=== PATIENT | female | born 1990 | race Caucasian/White ===

== ENCOUNTER 2025-01-14 09:47 | Emergency (ER) | payer SELFPAY ==
[~2025-01-14] VITALS: Ht 165.1 cm; Wt 72.7 kg
[2025-01-14 09:55] VITALS: BP 117/73; PULSE 80; RESP 18; TEMP 97.9; O2SAT 100
== END 2025-01-14 12:18 | disposition left against medical advice (07) ==
LOC: EMS 09:58
DX: M79.641 Pain in right hand (principal); Z53.21 Procedure and treatment not carried out due to patient leaving prior to being seen by health care provider

== ENCOUNTER 2025-03-23 13:56 | Emergency (ER) | payer OTHER, BC ==
[~2025-03-23] VITALS: Ht 167.6 cm; Wt 71.4 kg
[2025-03-23 14:00] VITALS: TEMP 98.6
[2025-03-23 14:12] LABS: COVID AG,FIA SOURCE NASAL SWAB
[2025-03-23 14:29] LABS: INFLUENZA TYPE A NEGATIVE FOR TYPE A (NEGATIVE); INFLUENZA TYPE B NEGATIVE FOR TYPE B (NEGATIVE); SARS-COV2 (COVID) ANTIGEN,FIA Negative (Negative)
[2025-03-23] MEDS: SODIUM CHLORIDE 0.9% 1,000 ML IV ONE (14:30)
[2025-03-23 14:49] LABS: BASOPHILS % (AUTO) 0.4 % (0.0-2.0); EOSINOPHILS % (AUTO) 0.4 % (1.0-6.0); HEMATOCRIT 37.6 % (36-46); HEMOGLOBIN 12.1 g/dL (12.0-16.0); LYMPHOCYTES # (AUTO) 2.2 K/uL (1.0-4.8); LYMPHOCYTES % (AUTO) 24.2 % (22.0-44.0); MEAN CORPUSCULAR HEMOGLOBIN 26.8 pg (26.0-34.0); MEAN CORPUSCULAR HGB CONC 32.1 G/dL (31.0-37.0); MEAN CORPUSCULAR VOLUME 84 fL (80-100); MONOCYTES # (AUTO) 0.9 K/uL (0.1-1.0); MONOCYTES % (AUTO) 9.8 % (2.0-9.0); NEUTROPHILS % (AUTO) 65.2 % (40.0-70.0); PLATELET COUNT (AUTO) 342 K/uL (150-450); RED BLOOD CELL COUNT(AUTO) 4.51 MIL/uL (4.00-5.20); RED CELL DISTRIBUTION WIDTH 15.8 % (11.5-14.5); WHITE BLOOD COUNT (AUTO) 9.2 K/uL (4.5-11.0)
[2025-03-23 14:57] LABS: ALBUMIN 3.4 g/dL (3.4-5.0); BILIRUBIN,DIRECT 0.1 mg/dL (0.00-0.20); BILIRUBIN,TOTAL 0.6 mg/dL (0.1-1.0); TOTAL PROTEIN, SERUM 7.4 g/dL (6.4-8.2)
[2025-03-23 14:58] LABS: D-DIMER 0.25 mg/L FEU (0.00-0.50)
[2025-03-23 15:17] LABS: ANION GAP 14 mmol/L (8-16); CARBON DIOXIDE 23 mmol/L (22-29); CHLORIDE 103 mmol/L (98-107); CREATININE 0.49 mg/dL (0.60-1.30); GLUCOSE,RANDOM 100 mg/dL (70-110); POTASSIUM 3.8 mmol/L (3.5-5.1); SODIUM SERUM 140 mmol/L (136-145); UREA NITROGEN, BLOOD 11 mg/dL (7-18)
[2025-03-23 15:18] LABS: CALCIUM, TOTAL 9.1 mg/dL (8.8-10.5); GLOMERULAR FILTR. RATE CALC > 60 mL/min (>60)
[2025-03-23 15:26] LABS: TROPONIN I-HIGH SENSITIVITY 4 ng/L (<51)
[2025-03-23 15:30] VITALS: BP 116/71; PULSE 87; RESP 16; O2SAT 99
[2025-03-23 16:52] LABS: TROPONIN I-HIGH SENSITIVITY 5 ng/L (<51)
== END 2025-03-23 17:00 | disposition home or self-care (01) ==
LOC: EMS 13:58
DX: R07.9 Chest pain, unspecified (principal); R42 Dizziness and giddiness; R06.02 Shortness of breath; Z90.49 Acquired absence of other specified parts of digestive tract; Z20.822 Contact with and (suspected) exposure to COVID-19
CPT/HCPCS: 99285; 96360; 71045; 87426; 80048; 80076; 83880; 84484; 84703; 85025; 85379; 85610; 85730; 87804; 36415; 93005; J7030

== ENCOUNTER 2025-04-19 17:37 | Emergency (ER) | payer BC ==
[~2025-04-19] VITALS: Ht 167.6 cm; Wt 72.7 kg
[~2025-04-19 17:37] MED LIST: ACET-2247 PO; ONDA-104 PO
[2025-04-19 17:48] VITALS: BP 98/70; PULSE 87; RESP 18; TEMP 97.9; O2SAT 97
== END 2025-04-19 18:46 | disposition home or self-care (01) ==
LOC: EMS 17:37
DX: S01.81XD Laceration without foreign body of other part of head, subsequent encounter (principal); Z90.49 Acquired absence of other specified parts of digestive tract; Z98.890 Other specified postprocedural states
CPT/HCPCS: 99281; Z7502